=== PATIENT | female | born 1995 | race Caucasian/White ===

== ENCOUNTER → 2019-03-06 16:22 | Outpatient (CLI) | payer MEDICAID, SELFPAY ==
[2019-03-06 17:10] LABS: Basophils % 0.3 % (0.1-2.0); Eosinophils # 0.1 K/mm3 (0.0-0.4); Eosinophils % 0.4 % (0.1-12.0); Hemoglobin 13.9 g/dL (12.2-16.2); Lymphocytes # 3.4 K/mm3 (0.7-4.5); Lymphocytes % 28.2 % (10-50); Mean Corpuscular HGB Conc 33.1 g/dL (31.8-35.4); Mean Corpuscular Hemoglobin 28.7 pg (27.0-31.2); Mean Corpuscular Volume 86.8 fl (81-99); Monocytes # 0.5 K/mm3 (0.1-1.0); Monocytes % 3.8 % (1.7-9.3); Neutrophils # 8.1 K/mm3 (1.8-7.8); Neutrophils % 67.4 % (37.0-80.0); Platelet Count 386 K/mm3 (142-424); Red Blood Count 4.84 M/mm3 (4.20-5.40); Red Cell Distribution Width 13.3 % (11.5-17.5); White Blood Count 12.1 K/mm3 (4.8-10.8)
[2019-03-08 08:20] LABS: HIV Screen 4th Generation wRfx Non Reactive (Non Reactive)
[2019-03-08 14:41] LABS: Hepatitis B Surface Antigen Negative (Negative); Hepatitis C Antibody <0.1 s/co ratio (0.0-0.9); Rapid Plasma Reagin Ab Titer Non Reactive (NonRea<1:1); Rubella Antibodies, IgG 1.01 index (Immune >0.99)
== END ==
PROVIDERS: Visit Provider Nurse Practitioner Obstetrics & Gynecology
DX: Z34.90 Encounter for supervision of normal pregnancy, unspecified, unspecified trimester (principal)
CPT/HCPCS: 36415; 85025; 86592; 86703; 86762; 86850; 87340; 87380; G0432

== ENCOUNTER → 2019-03-13 13:12 | Outpatient (CLI) | payer MEDICAID, SELFPAY ==
--- NOTE | 2019-03-13 13:15 | US_ITS ---
US OB transvaginal HISTORY: ITS.REASON: US OB Dates ORDERING PHYSICIAN: Aryan Yi MD PATIENT AGE: 23 years COMPARISON: None FINDINGS: An intrauterine gestational sac is present with a pole with a crown-rump length of 2.98cm correlating to gestational age of 9w6d. heart tones are present with an FHR of 157 bpm's. Yolk sac is noted. The amnion and chorion have not yet fused. Adnexa: Unremarkable. IMPRESSION: Live intrauterine gestation at 9 weeks 6 days as described above. Estimated due date by Ultrasound is 10/10/2019
== END ==
PROVIDERS: PCP Nurse Practitioner Obstetrics & Gynecology; Visit Provider Nurse Practitioner Obstetrics & Gynecology
DX: O26.841 Uterine size-date discrepancy, first trimester (principal)
CPT/HCPCS: 76817

== ENCOUNTER → 2019-05-29 14:25 | Outpatient (CLI) | payer MEDICAID, SELFPAY ==
--- NOTE | 2019-05-29 14:29 | US_ITS ---
US OB /maternal detail: INDICATION: ITS.REASON: US OB Complete ORDERING PHYSICIAN: Aryan Yi MD PATIENT AGE: 24 years TECHNIQUE: ultrasound transabdominal scanning. COMPARISON: No previous relevant studies. FINDINGS: Study is somewhat limited due to maternal body habitus Single viable intrauterine gestation. Cephalic position. Placenta: Posterior placenta grade 1. There is average amount fluid. The cervix appears satisfactory. Closed and measuring 4 cm in length. Complete survey performed and was unremarkable on the submitted images as in PACS. No discrete anomalies identified on survey imaging by technologist. Active fetus. Three-vessel cord with satisfactory umbilical cord insertion. 4- chamber heart noted. Survey of brain & ventricles unremarkable. Face and neck survey unremarkable. Diaphragm and chest views unremarkable. Abdomen: Both kidneys noted and unremarkable. Stomach noted and satisfactory. Spine: Survey of the spine satisfactory with no anomalies identified nor imaged. Both arms and legs noted. Amniotic Fluid: Adequate. Maternal adnexa: No significant findings. Measurements: Average ultrasound age 20w5d. Gestational Age 20w6d. Estimated due date by ultrasound age 1210/11/2019. Estimated weight 373 grams. BPD = 20w6d OFD = 21w0d HC = 20w2d AC = 20w6d FL = 20w6d Growth Percentile= 38 Heart Rate = 156 Cerebellum = 20w6d Humerus = 20w6d HC/AC is 1.13 (1.09-1.26). CI is 78% (70-86%). FL/BPD is 70%. FL/AC is 22%. IMPRESSION: There is a single live intrauterine gestation which is in cephalic presentation with an average ultrasound age of 20 weeks and 5 days. All parameters correlate with no obvious anomalies. Please see above for detail.
== END ==
PROVIDERS: PCP Emergency Medicine; Visit Provider Nurse Practitioner Obstetrics & Gynecology
DX: Z36.0 Encounter for antenatal screening for chromosomal anomalies (principal)
CPT/HCPCS: 76811

== ENCOUNTER → 2019-07-08 12:18 | Outpatient (CLI) | payer MEDICAID, SELFPAY ==
[2019-07-08 12:50] LABS: Glucose,Fasting 87 mg/dL (60-105)
[2019-07-08 14:34] LABS: Glucose 1 Hour 183 mg/dL (74-106)
== END ==
PROVIDERS: Visit Provider Nurse Practitioner Obstetrics & Gynecology
DX: Z34.90 Encounter for supervision of normal pregnancy, unspecified, unspecified trimester (principal)
CPT/HCPCS: 36415; 82951

== ENCOUNTER → 2019-07-15 10:18 | Outpatient (CLI) | payer MEDICAID, SELFPAY ==
[2019-07-15 10:46] LABS: Glucose,Fasting 92 mg/dL (60-105)
[2019-07-15 12:07] LABS: Glucose 1 Hour 213 mg/dL (74-106)
[2019-07-15 13:34] LABS: Glucose 2 Hour 161 mg/dL (74-106)
[2019-07-15 14:35] LABS: Glucose 3 Hour 101 mg/dL (74-106)
== END ==
PROVIDERS: Visit Provider Nurse Practitioner Obstetrics & Gynecology
DX: Z34.90 Encounter for supervision of normal pregnancy, unspecified, unspecified trimester (principal)
CPT/HCPCS: 36415; 82951

== ENCOUNTER → 2019-09-13 13:25 | Outpatient (CLI) | payer MEDICAID, SELFPAY ==
--- NOTE | 2019-09-13 13:29 | US_ITS ---
PROCEDURE: US OB BIOPHYSICAL PROFILE CLINICAL INDICATION: US OB BPP Growth- LGA Large for gestational age TECHNIQUE: FINDINGS: The following parameters are obtained: Average ultrasound age is Average 36 weeks 1 day estimated due date by ultrasound is 10/10/2019. Estimated weight is 2,851.3 g. This is 51 percentile Wks/days BPD: 36/1 OFD: 36/3 HC: 35/5 AC: 36/2 FL: 36/1 heart rate: 144 bpm bpm. HC/AC: 0.98 Cephalic index: 0.8 FL/BPD: 0.79 FL/AC: 0.22 Amniotic fluid index: 14.63 cm Qualitative AFV: 2 breathing movements: 2 Gross body movements: 2 Tone: 2 Biophysical profile score: 8 Placenta: The placenta is posterior in implantation and is grade 1 Cervix: 4 cm IMPRESSION: There is a single live fetus in cephalic presentation with an average ultrasound age of 36 weeks and 1 day. Estimated weight is 2851 g which is 51 percentile. Biophysical profile 8 of 8. Normal VI of 15 cm Dictated by: Chun Vicente MD 09/13/2019 19:40 Electronically signed by Chun Vicente MD in [facility] 09/16/2019 12:21
== END ==
PROVIDERS: Visit Provider Nurse Practitioner Obstetrics & Gynecology
DX: O36.60X0 Maternal care for excessive fetal growth, unspecified trimester, not applicable or unspecified (principal)
CPT/HCPCS: 76816; 76819

== ENCOUNTER → 2019-09-18 16:33 | Outpatient (CLI) | payer MEDICAID, SELFPAY | LOC: LAB 16:33 → LAB.DROPOF 09-19 08:51 | PROVIDERS: Visit Provider Nurse Practitioner Obstetrics & Gynecology | DX: Z34.90 Encounter for supervision of normal pregnancy, unspecified, unspecified trimester (principal) | CPT/HCPCS: 86403 ==

== ENCOUNTER 2019-10-03 03:16 | Inpatient (IN) ==
[2019-10-03 05:50] LABS: Microscopic, Urine URINE MICROSCOPIC (MICROSCOPIC)
[2019-10-03 06:21] LABS: Appearance,Urine CLEAR (Clear); Bilirubin,Urine Negative (Negative); Blood, Urine Negative (Negative); Color,Urine YELLOW (Yellow); Glucose,Urine (UA) Negative (Negative); Ketones,Urine TRACE (Negative); Leukocyte Esterase,Urine Negative (Negative); PH,Urine 6.5 (5.0-8.5); Protein,Urine Negative (Negative); Urobilinogen,Urine 0.2 EU/dl (0.2)
[2019-10-03 06:29] LABS: Amphetamine/Metha Screen,Urine Negative ng/mL (<1000); Barbiturates Screen,Urine Negative ng/mL (<200); Benzodiazepines Screen,Urine Negative ng/mL (<200); Cannabinoid Screen,Urine Negative ng/mL (<50); Cocaine Screen,Urine Negative ng/mL (<300); Methadone Screen,Urine Negative ng/mL (<300); Opiate Screen,Urine Negative ng/mL (<300); Phencyclidine Screen,Urine Negative ng/mL (<25)
[2019-10-03 06:39] LABS: Bacteria,Urine Trace /lpf; RBC,Urine Occasional #/hpf (0-3); WBC,Urine Occasional #/hpf (0-3)
[2019-10-03 06:43] LABS: Basophils # 0.1 K/mm3 (0-0.2); Basophils % 0.4 % (0.1-2.0); Eosinophils # 0.1 K/mm3 (0.0-0.4); Eosinophils % 0.5 % (0.1-12.0); Hemoglobin 12.4 g/dL (12.2-16.2); Lymphocytes # 3.4 K/mm3 (0.7-4.5); Lymphocytes % 24.5 % (10-50); Mean Corpuscular HGB Conc 31.1 g/dL (31.8-35.4); Mean Corpuscular Volume 91.3 fl (81-99); Mean Platelet Volume 10.8 fl (7.4-10.4); Monocytes # 0.6 K/mm3 (0.1-1.0); Monocytes % 4.4 % (1.7-9.3); Neutrophils # 9.7 K/mm3 (1.8-7.8); Neutrophils % 70.3 % (37.0-80.0); Platelet Count 307 K/mm3 (142-424); Red Blood Count 4.38 M/mm3 (4.20-5.40); Red Cell Distribution Width 14.2 % (11.5-17.5); White Blood Count 13.8 K/mm3 (4.8-10.8)
--- NOTE | 2019-10-03 07:33 | Progress Note ---
Labor Note - Subjective: Date: 10/03/19 Time: 07:20 regular contraction - Objective: NST:: Reactive Contractions:: every 2-3 minutes Cervical Dilation:: 3 Effacement:: 75% Station: -1 Membranes: artificially ruptured - Fetus: Monitoring?: Yes monitoring type:: External - Assessment: Labor progressing?: Yes Cephalopelvic disproportion?: No Patient Problems: All Active Problems (Acute) Gestational diabetes (Chronic) - Plan: Anesthesia for epidural?: No Continue to labor down?: Yes Plan for ?: No Continue to monitor?: Yes Start pushing?: No
--- NOTE | 2019-10-03 08:43 | Progress Note ---
[facility] [place] Anesthesia Checklist - Structural Data Admitted From: Inpatient Planned Operative Procedure/s: labor epidural Consent for Planned Operative Procedure(s) Verified: Yes - Airway Assessment C-Spine Mobility Assessed: Yes TMJ Mobility Assessed: Yes Dentition: Good Dentition - Neurological Assessment Level of Consciousness: Awake, Alert, Appropriate - Anesthesia Plan Anesthesia Risk discussed: Yes Anesthesia Plan: Verified ASA Class: III Anesthesia Type: Epidural [facility] History I have reviewed the patient's past medical history: Yes *Have you ever received a pneumonia vaccine?: No *Have you received a flu vaccine this season?: No Other Medical History: Reports: Other Anesthesia experience/problems:: none Other Surgeries: Yes: Cholecystectomy. No: Amputation: No Fractures: No - *Social History Smoking Status: Former smoker Tobacco Type: cigarettes Alcohol Intake: never Substance Use Type: denies use *Occupational Status:: unemployed *Travel in the last 8 weeks: None Family Hx:: Hypertension Para: 1
--- NOTE | 2019-10-03 12:03 | Progress Note ---
Labor Note - Subjective: Date: 10/03/19 Time: 12:02 regular contraction - Objective: NST:: Reactive Contractions:: every 2-3 minutes Cervical Dilation:: 6 Effacement:: 90% Station: -2 Membranes: artificially ruptured - Fetus: Monitoring?: Yes monitoring type:: Internal and External - Assessment: Labor progressing?: Yes Cephalopelvic disproportion?: No Patient Problems: All Active Problems (Acute) Gestational diabetes (Chronic) - Plan: Anesthesia for epidural?: Yes Continue to labor down?: Yes Plan for ?: No Continue to monitor?: Yes Start pushing?: No
--- NOTE | 2019-10-03 13:44 | Progress Note ---
Labor Note - Subjective: Date: 10/03/19 Time: 13:41 irregular contractions - Objective: Contractions:: every 4-5 minutes Cervical Dilation:: 6-7 Effacement:: 100% Membranes: artificially ruptured - Fetus: Monitoring?: Yes monitoring type:: Internal - Assessment: Labor progressing?: Yes Cephalopelvic disproportion?: No Patient Problems: All Active Problems (Acute) Gestational diabetes (Chronic) - Plan: Anesthesia for epidural?: Yes Continue to labor down?: Yes Plan for ?: No Continue to monitor?: Yes Start pushing?: No Comment:: She was having some lites and we did an amnioinfusion and stop the oxytocin. We are now restarting oxytocin and she is also on oxygen. The heart rate tracing is much improved and reactive. There are no further episodes of lites. She has a couple of early's once in a while. We will plan for a vaginal delivery. She has changed her cervix.
--- NOTE | 2019-10-03 16:20 | Procedure Note ---
- Delivery Note Delivery Date:: 10/03/19 Delivery Time:: 15:53 Anesthesia Type: Epidural Was labor medically induced?: Yes Induction method: per pitocin protocol Infant delivered prior to 39 weeks?: No Infant Gender: Male at 1 minute: 8 LAC or MLE?: LAC Delivery Procedure:: She is a 24-year-old 2 para 1 at 39+ weeks gestational age. She was feeling uncomfortable and having pressure so we elected to induce her labor at term. She was started on IV oxytocin had her membranes ruptured. Under labor epidural she progressed to full dilation and delivered spontaneously a liveborn male child at 3:53 PM in the afternoon of October 03, 2019. On deliver the head it was noted that there was a tight nuchal cord. We deliver the infant's body and then reduce the cord after delivery. The oropharynx and nasopharynx were bulb suctioned. The baby was vigorous and cried. We allowed the cord to continue to pulsate for approximately 1 minute. The cord was then doubly clamped and cut. The baby was then placed on the mother's abdomen for further care. The nurses assigned Apgars of 8 at 1 minute and 9 at 5 minutes. Using gentle traction on the cord and countertraction on the fundus I was able to easily deliver the placenta intact at 3:56 PM. He had a normal three-vessel cord. She had a small first-degree vaginal laceration posteriorly and this was repaired with interrupted 3-0 Vicryl Rapide suture. She has a positive blood, she is rubella immune and was group B streptococcus negative. Her malt house operator is Dr. Zheng. Estimated blood loss was approximately 500 cc. She did pass a couple of clots and I elected to give her 200 mcg of Cytotec rectally. Laceration:: vaginal Placental Delivery Description: Spontaneous
[2019-10-04 07:20] LABS: Hematocrit 36.4 % (37.0-47.0); Hemoglobin 11.7 g/dL (12.2-16.2)
--- NOTE | 2019-10-04 09:39 | Progress Note ---
Internal Medicine - PN: Subj *Date: 10/04/19 *Time: 09:38 Interval history: She is doing very well this morning. She is eating and drinking and ambulating. She is bottlefeeding. Her lochia is normal. Exam Vital signs and Labs for Last 24 Hours: Temp Pulse Resp BP Pulse Ox 97.5 F L 92 H 18 133/84 96 10/04/19 07:45 10/04/19 07:45 10/04/19 07:45 10/04/19 07:45 10/04/19 07:45 Laboratory Results - last 24 hr 10/03/19 16:05: Cord ABG pH 7.33 L 10/04/19 06:25: Hgb 11.7 L, Hct 36.4 L I & O for Last 24 hours: Intake & Output 10/01/19 10/02/19 10/03/19 10/04/19 11:59 11:59 11:59 11:59 Weight 271 lb - Constitutional no acute distress Assessment and Plan (1) Normal delivery at term Current visit: Yes Status: Acute Category: Medical Code(s): O80 - Encounter for full-term uncomplicated delivery - Assessment and plan all Dx Assessment and Plan for all problems:: She continues to do well. We will plan to send her home tomorrow.
[2019-10-04 16:04] VITALS: BP 118/77
--- NOTE | 2019-10-05 08:22 | Discharge Summary ---
General - General Admission date:: 10/03/19 Discharge date: 10/05/19 HPI HPI: She is a 24-year-old 2 now para 2 who was 39+ weeks gestational age. She came in for induction of labor at term. She had diet-controlled gestational diabetes and as a result of that we elected to deliver her. Hospital Course Hospital Course: She was started on IV oxytocin and had her membranes ruptured. Under labor epid ural she progressed to full dilation and delivered spontaneously a liveborn male child. She has done well and has remained afebrile throughout her hospitalization. She is eating and drinking and ambulating. She is bottlefeeding. Her lochia is normal. She has A positive blood, she is rubella immune and was group B streptococcus negative. She is discharged home to follow-up with me in approximately 2 weeks time. She was given the usual instructions with respect to limiting her activity, driving and sexual activity. Her condition on discharge is stable and improved. Rhogam Administration: Not Indicated Objective Vital signs: Temp Pulse Resp BP Pulse Ox 97.8 F 78 18 118/77 97 10/04/19 16:00 10/04/19 16:00 10/04/19 16:00 10/04/19 16:00 10/04/19 16:00 no acute distress DS: Diagnosis - Discharge Diagnosis (1) Normal delivery at term Status: Acute (2) Gestational diabetes Status: Chronic Discharge Plan - Patient Discharge Instructions ACTIVITY: No heavy lifting DIET: continue same diet - Follow up Plan Disposition: Home, Self-Senior Care Medications: Home Medications Medication Instructions Recorded Confirmed Type alcohol swabs 1 pad TOPICAL NEEDED PRN #100 09/18/19 10/03/19 History each blood sugar diagnostic strips See Dose Instructions .ROUTE 09/18/19 10/03/19 History .MEDSUPPLY #100 each blood-glucose meter kit See Dose Instructions .ROUTE 09/18/19 10/03/19 History .MEDSUPPLY #1 each vitamin with calcium 1 tab PO DAILY #30 tab 10/02/19 10/03/19 History no.72-iron 27 mg-folic acid 1 mg tablet Ferrous Sulfate 325 mg PO DAILY 10/03/19 10/03/19 History Prescriptions/Medication Reconciliation: Continued alcohol swabs 1 pad TOPICAL NEEDED PRN #100 each PRN Reason: CLEAN TEST SITE blood-glucose meter kit See Dose Instructions .ROUTE .MEDSUPPLY #1 each blood sugar diagnostic strips See Dose Instructions .ROUTE .MEDSUPPLY #100 each vitamin with calcium no.72-iron 27 mg-folic acid 1 mg tablet 1 tab PO DAILY #30 tab Ferrous Sulfate 325 mg PO DAILY - Problem Reconciliation Problems Reviewed?: Yes
== END 2019-10-05 13:53 | disposition home or self-care (01) | DRG 807 ==
LOC: OB 04:32
PROVIDERS: ADMIT Nurse Practitioner Obstetrics & Gynecology; ATTEND Nurse Practitioner Obstetrics & Gynecology
CPT/HCPCS: C1758